=== PATIENT | female | born 1965 | race Caucasian/White ===

== ENCOUNTER 2017-03-10 17:43 | Emergency (ER) | payer SELFPAY ==
--- NOTE | 2017-03-10 18:19 | ED Physician Chart ---
ED Chief Complaint/HPI - Patient Information Date Seen:: 03/10/17 Time Seen:: 18:06 Chief Complaint:: Migraine headache for 1 day History of Present Illness:: 51 yo female with history of migraine headache for 30 years, recently has a episode of headache for 1 day. The headache is located in the frontal area, with sound and photo sensitivity. Denies nausea or vomiting. The migraine headache would be triggered by many food contents. The patient has been in menopause for 2 years and she still has periods every 4 months, which would trigger headache. The patient also has family history of migraine headache. The patient has tried Imitrex, beta blockers and other medications. Butorphanol nasal spray works well with her headache. The patient has ran out the Butorphanol and requests a refill. The patient currently has no insurance and her new insurance will be effective on 03/22/17. Allergies:: Allergies Allergy/AdvReac Type Severity Reaction Status Date / Time No Known Allergies Allergy Verified 03/10/17 17:46 Vitals:: Vital Signs - 8 hr 03/10/17 17:46 Temp 98.6 F HR 94 RR 15 BP 141/89 O2 Sat % 98 ED Review of Systems - Review of Systems General/Constitutional: No fever, No chills Skin: No skin lesions Head: Headache Eyes: No loss of vision ENT: No earache Neck: No neck pain Cardio Vascular: No chest pain Pulmonary: No SOB GI: No nausea, No vomiting G/U: No dysuria Musculoskeletal: Back pain Neurological: Headache, No seizure ED Past Medical History - Past Medical History Past Medical History: Arthritis, Other (migraine headache, low back pain) Family History: Other (migraine headache) Social History: Smoker, No Alcohol, No Drug Use Surgical History: Appendectomy, Cholecystectomy, (x2) Family Medical History - Family Member Mother Hx Family Cancer: No Hx Family Congestive Heart Failure: No Hx Family Stroke: No Hx Family Diabetes: No Hx Family Dementia: No Hx Family HIV: No Hx Family Tuberculosis: Yes ED Physical Exam - Physical Examination General/Constitutional: Awake, Alert ED Assessment - Assessment General Assessment: 51 yo female has migraine headache. Critical Care Time: 30 min Excludes all billable procedures: Yes This condition life threatening/high prob of deterioration: No Assessment/Comments:: Butorphanol nasal spray #1 Follow up PCP once her health insurance becomes effective on 03/22/17 ED Septic Shock - . Is Septic Shock (SBP<90, OR Lactate>4 mmol\L) present?: No - <6hrs of presentation: Vital Signs: Vital Signs - 8 hr 03/10/17 17:46 Temp 98.6 F HR 94 RR 15 BP 141/89 O2 Sat % 98 ED Discharge Plan - Patient Disposition Admit/Discharge/Transfer: PT DISCHARGED HOME Condition at Disposition: Stable Instructions: Migraine Headache
== END 2017-03-10 18:35 | disposition home or self-care (01) ==
LOC: ER 17:43
DX: G43.909 Migraine, unspecified, not intractable, without status migrainosus (principal); M54.5 Low back pain; M12.9 Arthropathy, unspecified; F17.210 Nicotine dependence, cigarettes, uncomplicated
CPT/HCPCS: Z7502

== ENCOUNTER 2017-08-06 15:32 | Emergency (ER) | payer SELFPAY ==
--- NOTE | 2017-08-06 16:21 | ED Physician Chart ---
History of Present Illness - General Chief Complaint: Headache Stated Complaint: MIGRAINE Time Seen by Provider: 08/06/17 16:17 - History of Present Illness Initial Comments: 52 yo female had migraine headaches 4 times since her last ER visit 5 months ago. Allergies/Adverse Reactions: Allergies No Known Allergies Allergy (Verified 03/10/17 17:46) Home Medications: Ambulatory Orders Ibuprofen [Motrin*] 800 mg PO Q48H 08/06/17 Naproxen 500 mg PO Q48H 08/06/17 Past History - Social History Smoking Status: Current every day smoker Hx Alcohol Use: No Hx Drug Use: No Family Medical History - Family Member Mother Hx Family Cancer: No Hx Family Congestive Heart Failure: No Hx Family Stroke: No Hx Family Diabetes: No Hx Family Dementia: No Hx Family HIV: No Hx Family Tuberculosis: Yes Departure - Departure Home Medications: Ambulatory Orders Ibuprofen [Motrin*] 800 mg PO Q48H 08/06/17 Naproxen 500 mg PO Q48H 08/06/17
--- NOTE | 2017-08-06 16:25 | ED Physician Chart ---
ED Chief Complaint/HPI - Patient Information Date Seen:: 08/06/17 Time Seen:: 16:24 Chief Complaint:: Headache History of Present Illness:: 52 yo female had migraine headaches 4 times since her last ER visit 5 months ago. Allergies:: Allergies Allergy/AdvReac Type Severity Reaction Status Date / Time No Known Allergies Allergy Verified 03/10/17 17:46 Vitals:: Vital Signs - 8 hr 08/06/17 15:55 Temp 97.8 F HR 64 RR 19 BP 148/91 O2 Sat % 98 Family Medical History - Family Member Mother Hx Family Cancer: No Hx Family Congestive Heart Failure: No Hx Family Stroke: No Hx Family Diabetes: No Hx Family Dementia: No Hx Family HIV: No Hx Family Tuberculosis: Yes ED Septic Shock - <6hrs of presentation: Vital Signs: Vital Signs - 8 hr 08/06/17 15:55 Temp 97.8 F HR 64 RR 19 BP 148/91 O2 Sat % 98 ED Discharge Plan - Patient Disposition Admit/Discharge/Transfer: PT DISCHARGED HOME Condition at Disposition: Unchanged Instructions: Recurrent Migraine Headache, [id number]
== END 2017-08-06 17:15 | disposition home or self-care (01) ==
LOC: ER 15:32
DX: G43.909 Migraine, unspecified, not intractable, without status migrainosus (principal)
CPT/HCPCS: Z7502

== ENCOUNTER 2017-09-22 17:38 | Emergency (ER) | payer SELFPAY | END 2017-09-22 19:55 | disposition short-term general hospital (02) | LOC: ER 17:38 | DX: R51 Headache (principal) ==

== ENCOUNTER 2017-12-13 16:55 | Emergency (ER) | payer SELFPAY | END 2017-12-13 17:15 | disposition left against medical advice (07) | LOC: ER 16:55 | DX: Z76.0 Encounter for issue of repeat prescription (principal); G43.909 Migraine, unspecified, not intractable, without status migrainosus; Z53.29 Procedure and treatment not carried out because of patient's decision for other reasons ==

== ENCOUNTER 2018-03-21 17:54 | Emergency (ER) | payer SELFPAY ==
--- NOTE | 2018-03-21 18:25 | ED Physician Chart ---
ED Chief Complaint/HPI - Patient Information Date Seen:: 03/21/18 Time Seen:: 18:00 Chief Complaint:: Headaches History of Present Illness:: onset x 3 days of intermittent, dull, bilateral "Migraine"-type frontal Headaches; pt denies trauma, LOC, ALOC, AMS, N/V, decreased activity, visual or gait changes, congestion, E/As, S/T, neck pain, weakness, dizziness, paresthesias, vertigo, cough, C/P, SOB, Abd. Pain, A/N/V/D/C, fever, chills, or urinary s/s; pt is one year post-menopausal; pt denies ; pt denies depression, SIs, Jaw pain, jaw claudication, or hallucinations Allergies:: Allergies Allergy/AdvReac Type Severity Reaction Status Date / Time No Known Allergies Allergy Verified 03/10/17 17:46 Vitals:: Vital Signs - 8 hr 03/21/18 18:09 HR 100 RR 16 O2 Sat % 99 Historian:: Patient Review:: Nurse's Note Reviewed ED Review of Systems - Review of Systems General/Constitutional: No fever, No chills, No weight loss, No weakness, No diaphoresis, No edema, No loss of appetite Skin: No skin lesions, No rash, No bruising Head: Headache, No light-headedness Eyes: No loss of vision, No pain, No diplopia ENT: No earache, No nasal drainage, No sore throat, No tinnitus Neck: No neck pain, No swelling, No thyromegaly, No stiffness, No mass noted Cardio Vascular: No chest pain, No palpitations, No PND, No orthopnea, No edema Pulmonary: No SOB, No cough, No sputum, No wheezing GI: No nausea, No vomiting, No diarrhea, No pain, No melena, No hematochezia, No constipation, No hematemesis G/U: No dysuria, No frequency, No hematuria, No nacturia 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: No vaginal discharge, No abnormal vaginal bleed, No contraction Musculoskeletal: No bone or joint pain, No back pain, No muscle pain Endocrine: No polyuria, No polydipsia Psychiatric: No prior psych history, No depression, No anxiety, No suicidal ideation, No homicidal ideation, No auditory hallucination, No visual hallucination Hematopoietic: No bruising, No lymphadenopathy Allergic/Immuno: No urticaria, No angioedema Neurological: No syncope, No focal symptoms, No weakness, No paresthesia, Headache, No seizure, No dizziness, No confusion, No vertigo ED Past Medical History - Past Medical History Obtainable: Yes Past Medical History: Arthritis, Other (Migraine Headaches) Family History: Cancer, Other Social History: Non Smoker, No Alcohol, No Drug Use, Single Surgical History: None Psychiatricy History: None Medication: Reviewed Family Medical History - Family Member Mother History Unknown: Yes Living Status: Hx Family Cancer: No Hx Family Congestive Heart Failure: No Hx Family Stroke: No Hx Family Diabetes: No Hx Family Dementia: No Hx Family HIV: No Hx Family Tuberculosis: Yes Other Medical History: ca ED Physical Exam - Physical Examination General/Constitutional: Awake, Well-developed, well-nourished, Alert, No distress, GCS 15, Non-toxic appearing, Ambulatory Head: Atraumatic Eyes: Lids, conjuctiva normal, PERRL, EOMI Other Eyes comments:: PERRLA; Fundi: benign; EOMs: WNL Skin: Nl inspection, No rash, No skin lesions, No ecchymosis, Well hydrated, No lymphadenopathy ENMT: External ears, nose nl, TM canals nl, Nasal exam nl, Lips, teeth, gums nl , Oropharynx nl, Tonsils nl Other ENMT comments:: TMJs: WNL Neck: Nontender, Full ROM w/o pain, No JVD, No nuchal rigidity, No bruit, No mass, No stridor Other Neck comments:: supple; no meningeal signs; no cervical tenderness; no bruits Respiratory: Nl effort/Exclusion, Clear to Auscultation, No Wheeze/Rhonchi/Rales Cardio Vascular: RRR, No murmur, gallop, rubs, NL S1 S2, Carotid/Femoral/Distal pulses equal bilaterally GI: No tenderness/rebounding/guarding, No organomegaly, No hernia, Normal BS's, Nondistended, No mass/bruits, No McBurney tenderness Other GI comments:: no pulsatile masses : No CVA tenderness Extremities: No tenderness or effusion, Full ROM, normal strength in all extremities, No edema, Normal digits & nails Neuro/Psych: Alert/oriented, DTR's symmetric, Normal sensory exam, Normal motor strength, Judgement/insight normal, Mood normal, Normal gait, No focal deficits Other Neuro/Psych comments:: no focal signs Misc: Normal back, No paraspinal tenderness ED Labs/Radiology/EKG Results - Radiology Results Comments:: Head CAT Scan: deferred by pt ED Septic Shock - . Is Septic Shock (SBP<90, OR Lactate>4 mmol\\L) present?: No - <6hrs of presentation: Vital Signs: Vital Signs - 8 hr 03/21/18 18:09 HR 100 RR 16 O2 Sat % 99 ED Reassessment (Disposition) - Reassessment Reassessment:: pt is asymptomatic upon discharge Reassessment Condition:: Improved - Diagnosis Diagnosis:: Dx: Headaches; Migraine Headaches; Tension Headaches; Vascular Cephalgia - Aftercare/Follow up Instructions Aftercare/Follow-Up Instructions:: Counseled pt regarding lab results/diagnosis & need follow up, Refer to Discharge Instructions, Counseled pt & family regarding lab results/diagnosis & need follow up Medication Prescribed:: Rx: Naprosyn/Butorphanol Tartrate Nasal [place]: take all medications as prescribed - Patient Disposition Discharge/Transfer:: Home Condition at Disposition:: Stable, Improved (RTER prn if existing s/s reoccur and/or get worse and/or any other new s/s occur; ACIs given for all above Dx; Refer to Neurologist/Page Makeup System Operator MALIKA; F/U with PMD in one day or prn; RTER prn if concerned)
== END 2018-03-21 18:30 | disposition home or self-care (01) ==
LOC: ER 17:54
DX: G43.909 Migraine, unspecified, not intractable, without status migrainosus (principal); G44.209 Tension-type headache, unspecified, not intractable; G44.1 Vascular headache, not elsewhere classified; M19.90 Unspecified osteoarthritis, unspecified site
CPT/HCPCS: Z7502

== ENCOUNTER 2018-05-10 12:52 | Emergency (ER) | payer SELFPAY ==
--- NOTE | 2018-05-10 13:35 | ED Physician Chart ---
ED Chief Complaint/HPI - Patient Information Date Seen:: 05/10/18 Time Seen:: 13:15 Chief Complaint:: headache History of Present Illness:: Patient had onset of left-sided frontal headache at about [id number] this morning. No vomiting. Headache was of gradual onset. Patient has mild photophobia. Patient's had migraine headaches for many years which are usually left frontal as his today's headache. Last equally severe headache was 2-3 weeks ago. Patient took both Naprosyn and ibuprofen today without appreciable improvement in her headache. Patient states she cannot take Imitrex because it causes hypertension. Patient gets relief for migraine headaches with Nubain nasal spray. Allergies:: Allergies Allergy/AdvReac Type Severity Reaction Status Date / Time No Known Allergies Allergy Verified 05/10/18 13:10 Vitals:: Vital Signs - 8 hr 05/10/18 13:00 Temp 98.4 F HR 103 RR 20 BP 126/78 O2 Sat % 98 Historian:: Patient Review:: Nurse's Note Reviewed ED Review of Systems - Review of Systems General/Constitutional: No fever, No chills, No weight loss, No weakness, No diaphoresis, No edema, No loss of appetite Skin: No skin lesions, No rash, No bruising Head: No headache, No light-headedness Eyes: No loss of vision, No diplopia, Other (photophobia) ENT: No earache, No nasal drainage, No sore throat, No tinnitus Neck: No neck pain, No swelling, No thyromegaly, No stiffness, No mass noted Cardio Vascular: No chest pain, No palpitations, No PND, No orthopnea, No edema Pulmonary: No SOB, No cough, No sputum, No wheezing GI: No nausea, No vomiting, No diarrhea, No pain, No melena, No hematochezia, No constipation, No hematemesis G/U: No dysuria, No frequency, No hematuria Musculoskeletal: No bone or joint pain, No back pain, No muscle pain Endocrine: No polyuria, No polydipsia Psychiatric: No prior psych history, No depression, No anxiety, No suicidal ideation Hematopoietic: No bruising, No lymphadenopathy Allergic/Immuno: No urticaria, No angioedema Neurological: No syncope, No focal symptoms, No weakness, No paresthesia, Headache, No seizure, No dizziness, No confusion, No vertigo ED Past Medical History - Past Medical History Past Medical History: Arthritis (migraine headaches), Other Family History: Heart disease, Cancer, Other Social History: Smoker, No Alcohol, Other (down to 5 cigarettes a day) Surgical History: Appendectomy, Cholecystectomy, Psychiatricy History: None Medication: Reviewed Family Medical History - Family Member Mother History Unknown: Yes Age: 71 Ethnicity: Non- Living Status: Hx Family Cancer: Yes Hx Family Congestive Heart Failure: No Hx Family Stroke: No Hx Family Diabetes: No Hx Family Dementia: No Hx Family HIV: No Hx Family Tuberculosis: Yes Father Age: 64 Ethnicity: Non- Living Status: Hx Family Coronary Artery Disease: Yes Other Medical History: Cardiac arrest ED Physical Exam - Physical Examination General/Constitutional: Awake, Well-developed, well-nourished, Alert, No distress Head: Atraumatic Eyes: Lids, conjuctiva normal, PERRL Other Eyes comments:: Optic disc are sharp Skin: Nl inspection, No rash ENMT: External ears, nose nl, TM canals nl, Nasal exam nl, Lips, teeth, gums nl , Oropharynx nl, Tonsils nl Neck: No nuchal rigidity Respiratory: Nl effort/Exclusion, Clear to Auscultation, No Wheeze/Rhonchi/Rales Cardio Vascular: RRR, No murmur, gallop, rubs, NL S1 S2 GI: No tenderness/rebounding/guarding, No organomegaly, No hernia, Normal BS's : No CVA tenderness Extremities: Normal digits & nails Neuro/Psych: No focal deficits Other Neuro/Psych comments:: No facial asymmetry; strong equal hand grasp; finger to nose and heel to renae test intact Misc: Normal back ED Assessment - Assessment General Assessment: Patient referred to a private physician for any medication like Nubain nasal spray which she may require ED Septic Shock - . Is Septic Shock (SBP<90, OR Lactate>4 mmol\L) present?: No - <6hrs of presentation: Vital Signs: Vital Signs - 8 hr 05/10/18 13:00 Temp 98.4 F HR 103 RR 20 BP 126/78 O2 Sat % 98 ED Reassessment (Disposition) - Reassessment Reassessment Condition:: Unchanged - Diagnosis Diagnosis:: Migraine headache - Aftercare/Follow up Instructions Aftercare/Follow-Up Instructions:: Refer to Discharge Instructions - Patient Disposition Discharge/Transfer:: Home Condition at Disposition:: Stable, Unchanged
[2018-05-10] MEDS ORDERED: Acetaminophen 500 MG TAB ONE (13:36)
== END 2018-05-10 14:09 | disposition home or self-care (01) ==
LOC: ER 12:52
DX: G43.909 Migraine, unspecified, not intractable, without status migrainosus (principal); M19.90 Unspecified osteoarthritis, unspecified site; F17.210 Nicotine dependence, cigarettes, uncomplicated; Z90.49 Acquired absence of other specified parts of digestive tract; Z98.890 Other specified postprocedural states
CPT/HCPCS: Z7610

== ENCOUNTER 2018-06-13 16:44 | Emergency (ER) | payer SELFPAY ==
--- NOTE | 2018-06-13 18:33 | ED Physician Chart ---
ED Chief Complaint/HPI - Patient Information Date Seen:: 06/13/18 Time Seen:: 16:55 Chief Complaint:: Fever History of Present Illness:: onset x 3 days of fever, cough, sinus H/As, and congestion; pt denies trauma, LOC, ALOC, AMS, E/As, visual or gait changes, S/T, neck pain, weakness, dizziness, paresthesias, vertigo, C/P, SOB, Abd. 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 Allergies:: Allergies Allergy/AdvReac Type Severity Reaction Status Date / Time No Known Allergies Allergy Verified 05/10/18 13:10 Vitals:: Vital Signs - 8 hr 06/13/18 06/13/18 16:54 18:16 Temp 98.0 F 98 F HR 96 96 RR 23 23 BP 146/78 146/78 O2 Sat % 98 98 Historian:: Patient Review:: Nurse's Note Reviewed, Old Chart Reviewed ED Review of Systems - Review of Systems General/Constitutional: Fever, No chills, No weight loss, No weakness, No diaphoresis, No edema, No loss of appetite Skin: No skin lesions, No rash, No bruising Head: Headache, No light-headedness Eyes: No loss of vision, No pain, No diplopia ENT: No earache, Nasal drainage, No sore throat, No tinnitus Neck: No neck pain, No swelling, No thyromegaly, No stiffness, No mass noted Cardio Vascular: No chest pain, No palpitations, No PND, No orthopnea, No edema Pulmonary: No SOB, Cough, No sputum, No wheezing GI: No nausea, No vomiting, No diarrhea, No pain, No melena, No hematochezia, No constipation, No hematemesis G/U: No dysuria, No frequency, No hematuria, No nacturia 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 vaginal 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, No abnormal vaginal bleed, No contraction Musculoskeletal: No bone or joint pain, No back pain, No muscle pain Endocrine: No polyuria, No polydipsia Psychiatric: No prior psych history, No depression, No anxiety, No suicidal ideation, No homicidal ideation, No auditory hallucination, No visual hallucination Hematopoietic: No bruising, No lymphadenopathy Allergic/Immuno: No urticaria, No angioedema Neurological: No syncope, No focal symptoms, No weakness, No paresthesia, Headache, No seizure, No dizziness, No confusion, No vertigo ED Past Medical History - Past Medical History Obtainable: Yes Past Medical History: Arthritis (Migraine Headaches) Family History: HTN Social History: Non Smoker, No Alcohol, No Drug Use, Surgical History: None Psychiatricy History: None Medication: Reviewed Family Medical History - Family Member Mother History Unknown: Yes Ethnicity: Non- Living Status: Hx Family Cancer: Yes Hx Family Congestive Heart Failure: No Hx Family Stroke: No Hx Family Diabetes: No Hx Family Dementia: No Hx Family HIV: No Hx Family Tuberculosis: Yes Father History Unknown: Yes Ethnicity: Non- Living Status: Hx Family Coronary Artery Disease: Yes ED Physical Exam - Physical Examination General/Constitutional: Awake, Well-developed, well-nourished, Alert, No distress, GCS 15, Non-toxic appearing, Ambulatory Head: Atraumatic Eyes: Lids, conjuctiva normal, PERRL, EOMI Other Eyes comments:: PERRLA; Fundi: benign; EOMs: WNL Skin: Nl inspection, No rash, No skin lesions, No ecchymosis, Well hydrated, No lymphadenopathy ENMT: External ears, nose nl, TM canals nl, Nasal exam nl, Lips, teeth, gums nl , Oropharynx nl, Tonsils nl Other ENMT comments:: TMJs: WNL; + Maxillary Sinus Tenderness; + Nasal Congestion Neck: Nontender, Full ROM w/o pain, No JVD, No nuchal rigidity, No bruit, No mass, No stridor Other Neck comments:: supple; no meningeal signs; no cervical tenderness; no bruits Respiratory: Nl effort/Exclusion, Clear to Auscultation, No Wheeze/Rhonchi/Rales Cardio Vascular: RRR, No murmur, gallop, rubs, NL S1 S2, Carotid/Femoral/Distal pulses equal bilaterally GI: No tenderness/rebounding/guarding, No organomegaly, No hernia, Normal BS's, Nondistended, No mass/bruits, No McBurney tenderness, Rectum exam nl Other GI comments:: no pulsatile masses; good BS : No CVA tenderness Extremities: No tenderness or effusion, Full ROM, normal strength in all extremities, No edema, Normal digits & nails Neuro/Psych: Alert/oriented, DTR's symmetric, Normal sensory exam, Normal motor strength, Judgement/insight normal, Mood normal, Normal gait, No focal deficits Other Neuro/Psych comments:: no focal signs Misc: Normal back, No paraspinal tenderness ED Labs/Radiology/EKG Results - Radiology Results Comments:: X-Rays: deferred by pt ED Septic Shock - . Is Septic Shock (SBP<90, OR Lactate>4 mmol\L) present?: No - <6hrs of presentation: Vital Signs: Vital Signs - 8 hr 06/13/18 06/13/18 16:54 18:16 Temp 98.0 F 98 F HR 96 96 RR 23 23 BP 146/78 146/78 O2 Sat % 98 98 ED Reassessment (Disposition) - Reassessment Reassessment:: pt tolerated po fluids well in ER; pt is asymptomatic upon discharge Reassessment Condition:: Improved - Diagnosis Diagnosis:: Dx: Headaches; Vascular Cephalgia; Sinus Headaches; Congestion; Sinusitis; Cough ; Bronchitis; Fever; URI - Aftercare/Follow up Instructions Aftercare/Follow-Up Instructions:: Counseled pt regarding lab results/diagnosis & need follow up, Refer to Discharge Instructions, Counseled pt & family regarding lab results/diagnosis & need follow up Medication Prescribed:: Rx: Amoxicillin 500mg po tid x 10 days; Tylenol 500mg po qid prn fever/pain/ Headaches; Cool Mist Vaporizer; take medications as prescribed; encourage fluids - Patient Disposition Discharge/Transfer:: Home Condition at Disposition:: Stable, Improved (RTER prn if existing s/s reoccur and/or get worse and/or any other new s/s occur; ACIs given for all above Dx; Refer to ENT Specialist/Neurologist/City Weighmaster MALIKA; F/U with PMD in one day or prn; RTER prn if concerned)
== END 2018-06-13 18:30 | disposition home or self-care (01) ==
LOC: ER 16:44
DX: G44.1 Vascular headache, not elsewhere classified (principal); J40 Bronchitis, not specified as acute or chronic; J32.9 Chronic sinusitis, unspecified; J06.9 Acute upper respiratory infection, unspecified; M19.90 Unspecified osteoarthritis, unspecified site
CPT/HCPCS: Z7502